=== PATIENT | female | born 1945 | race Caucasian/White ===

== ENCOUNTER 2017-12-08 19:59 | Emergency (ER) | payer OTHER, MEDICARE ==
[~2017-12-08] VITALS: Ht 167.6 cm; Wt 59.0 kg
--- NOTE | 2017-12-08 21:50 | ED MVC/FALL/TRAUMA COMPLAINT ---
History of Present Illness General Chief Complaint: Animal/Insect Bite Stated Complaint: TICK BITE, ?TICK REMOVED HEAD STILL THERE? 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 PT TRIED REMOVING TICK BUT THINKS THE HEAD IS STILL IN THERE. UNVISUALIZED IN TRIAGE. PT STATES SHE'S LEAVING AT 3AM FOR VACATION AND JUST WANTS TO MAKE SURE SHE IS OKAY. Triage Nurses Notes Reviewed? yes HPI: 72 yo previously healthy F presenting with tick bite. Patient noted tick to left upper chest wall starting tonight around 18:30, not noted to be there this morning, attempted to remove tick with tweezers, majority of tick (including head) removed, teeth still embedded prompting presentation to ED. (Edward LYNN,Wesly) Past History Travel History Traveled to [place] past 21 day No Medical History Any Pertinent Medical History? see below for history Neurological: NONE EENT: NONE Cardiovascular: NONE Respiratory: NONE Gastrointestinal: NONE Hepatic: NONE Renal: NONE Musculoskeletal: NONE Psychiatric: NONE Endocrine: NONE Blood Disorders: NONE Cancer(s): NONE GAME TRAPPER/Reproductive: NONE Pneumonia Vaccine: 06/10/07 Surgical History Surgical History: none Psychosocial History Who do you live with Spouse Services at Home None What is your primary language Irish Tobacco Use: Never used Family History Hx Contributory? Yes (Edward LYNN,Wesly) Review of Systems Review of Systems Constitutional: Reports: no symptoms. Eyes: Reports: no symptoms. Ears, Nose, Throat, Mouth: Reports: no symptoms. Respiratory: Reports: no symptoms. Cardiovascular: Reports: no symptoms. Gastrointestinal/Abdominal: Reports: no symptoms. Genitourinary: Reports: no symptoms. Musculoskeletal: Reports: no symptoms. Skin: Reports: see HPI. Neurological/Psychological: Reports: no symptoms. All Other Systems: Reviewed and Negative (Wesly Leon MD) Physical Exam Physical Exam General Appearance: well developed/nourished, no apparent distress, alert, awake Head: atraumatic Eyes: Bilateral: EOMI. Ears, Nose, Throat, Mouth: moist mucous membrane Neck: full range of motion Respiratory: normal breath sounds, no respiratory distress, lungs clear Cardiovascular: regular rate/rhythm Gastrointestinal: soft, non-tender Comments: Skin: Punctate black lesion to left upper chest without associated erythema Core Measures ACS in differential dx? No CVA/TIA Diagnosis No Sepsis Present: No Sepsis Focused Exam Completed? No (Wesly Leon MD) Progress Differential Diagnosis: aoritic dissection, abd injury, C/T/L spine injury, ext injury, ICH, pelvis injury, pnemothorax, spinal cord injury Plan of Care: Physician MDM: 72 yo previously healthy F presenting with tick bite. VSS, exam as above. DDx: Tick bite, low cocnern for lyme disease. Prophylactic doxycycline ordered from triage and given. Unable to remove tick jaws with tweezers, I discussed with the patient that these tick parts will fall out on their own over time and do not need to be reomved, patient is concerned about devloping infection at bite site during vacation in [place] and [place] (leaving in 5 hrs for 10 days), will provide with keflex Rx, plan to start if patient develops worsening pain or redness at bite site. I discussed that doxycycline would be an ideal medication for cellulitis (as it would also treat Lyme), but it has the unfortunate side effect of photosensitivity (not ideal for vacation), patient made aware that keflex will not treat lyme disease and she needs to return to ED or PMD for doxycycline if she develops rash or other Sx concerning for lyme. D/ Nahum with return precautions, keflex Rx. (Wesly Leon MD) Departure Departure Disposition: HOME OR SELF CARE Condition: Stable Clinical Impression Primary Impression: Tick bite Referrals: Kush Marquez MD (PCP/Family) Additional Instructions: Start taking keflex if you develop redness or pain at tick bite site. If you develop a bulls eye like red rash at the bite site or anywhere on your body please return to the ED or follow up with your [facility] doctor for treatment for lyme disease. Return to the ED for any new, worsening, or concerning symptoms. Departure Forms: Customer Survey General Discharge Information Prescriptions: Current Visit Scripts Cephalexin (Keflex) 1 CAP PO TID #30 CAP (Edward LYNN,Wesly) Resident Co-Sign Statement Statement: ED Attending supervision documentation- I saw and evaluated the patient. I have also reviewed all the pertinent lab results and diagnostic results. I agree with the findings and the plan of care as documented in the Resident's documentation. x I have reviewed the ED Record and agree with the Resident's documentation. [] Additions or exceptions (if any) to the Resident's note and plan are summarized below: [] (Chacho LYNN,Abdi)
[2017-12-08 22:01] VITALS: BP 150/78
[2017-12-08] MEDS ORDERED: KEFLEX500 M1 PO (22:12)
== END 2017-12-08 22:20 ==
LOC: ERH 19:59
DX: S20.362A Insect bite (nonvenomous) of left front wall of thorax, initial encounter (principal); W57.XXXA Bitten or stung by nonvenomous insect and other nonvenomous arthropods, initial encounter; Y92.9 Unspecified place or not applicable; Y93.9 Activity, unspecified